=== PATIENT | female | born 1995 | race Two or more races ===

== ENCOUNTER 2016-09-22 19:21 | Emergency (ER) | payer OTHER ==
[2016-09-26 23:35] LABS: CHLAMYDIA TRACH Not Detected (Not Detected); N GONOR Not Detected (Not Detected)
== END 2016-09-23 00:35 | disposition home or self-care (01) ==
LOC: CED 19:21
PROVIDERS: Nurse Practitioner Family
DX: N93.9 Abnormal uterine and vaginal bleeding, unspecified (principal)
CPT/HCPCS: 84703; 87491; 87591; 87808; 87905; 99284